=== PATIENT | male | born 1955 | race Hispanic/Latino ===

== ENCOUNTER 2022-08-07 06:47 | Observation (INO) | payer OTHER, MEDICARE ==
[2022-07-31 11:25] LABS: BASOPHILS % (AUTO) 0.6 % (0.0-5.0); EOSINOPHILS % (AUTO) 1.6 % (0.0-8.0); HEMATOCRIT 47.4 % (42-54); LYMPHOCYTES % (AUTO) 28.3 % (21.0-51.0); MEAN CORPUSCULAR HEMOGLOBIN 31.5 pg (27.0-33.0); MEAN CORPUSCULAR HGB CONC 34.2 g/dL (32.0-36.0); MEAN CORPUSCULAR VOLUME 92.2 fL (79-99); MONOCYTES % (AUTO) 7.7 % (3.0-13.0); NEUTROPHILS % (AUTO) 61.6 % (40.0-77.0); PLATELET COUNT (AUTO) 207 K/uL (130-400); RED BLOOD CELL COUNT(AUTO) 5.14 MIL/uL (4.50-6.20); RED CELL DISTRIBUTION WIDTH 14.2 % (11.0-15.5); WHITE BLOOD COUNT (AUTO) 5.1 K/uL (4.8-10.8)
[2022-07-31 11:35] LABS: CREATININE 1.9 mg/dL (0.5-1.5); POTASSIUM 4.5 mmol/L (3.5-5.1)
[2022-07-31 11:36] LABS: PROTHROMBIN TIME 10.9 SEC (9.6-11.6)
[2022-07-31 11:37] LABS: PARTIAL THROMBOPLASTIN TIME 29.1 SEC (26.3-35.5)
[2022-08-06 11:03] VITALS: BP 148/81
[~2022-08-07] VITALS: Ht 172.7 cm; Wt 81.3 kg
[2022-08-07] VITALS (30 sets, daily range): BP systolic 135–184; BP diastolic 75–96
[~2022-08-07 06:47] MED LIST: AEC81 PO; AMLO-257 PO; ATOR10 PO; CEFAZOLIN SODIUM 2 GM VIAL IVPB SCH; INSU100V12 SQ; LOSA100T58 PO
[2022-08-07] MEDS ORDERED: TRANEXAMIC ACID 1000MG/10ML ONE (07:24)
[2022-08-07] MEDS ORDERED: BUPIVACAINE/PF 0.5% 30ML VIAL ONE (07:28)
[2022-08-07] MEDS ORDERED: 0.9%NACL 1000ML 1,000 ML IV ONE (07:37)
[2022-08-07] MEDS ORDERED: CEFAZOLIN SODIUM 2 GM VIAL ONE (07:37)
[2022-08-07] MEDS ORDERED: ROPIVACAINE 0.5% 5MG/ML 30ML IJ ONE (08:40)
[2022-08-07] MEDS ORDERED: PROPOFOL 10 MG/ML 20ML VIAL IV ONE ×2 (08:41→09:38)
[2022-08-07] MEDS ORDERED: ROCURONIUM 10MG/1ML SYR 10 MG/ML ML ONE ×2 (08:41→10:24)
[2022-08-07] MEDS ORDERED: MIDAZOLAM HCL 1 MG/ML 2ML VIAL ONE (08:43)
[2022-08-07] MEDS ORDERED: FENTANYL CITRATE PF 50 MCG/1 ML 2ML VIAL ONE (08:44)
[2022-08-07] MEDS ORDERED: CEFAZOLIN SODIUM 2 GM VIAL IV ONE (09:22)
[2022-08-07] MEDS ORDERED: TRANEXAMIC ACID 1000MG/10ML IV ONE (10:20)
[2022-08-07] MEDS ORDERED: ONDANSETRON 4MG INJ ONE (11:19)
[2022-08-07] MEDS ORDERED: POTASSIUM CHLORIDE 20MEQ/100ML 100 ML IV PRN (12:00)
[2022-08-07] MEDS ORDERED: POTASSIUM CHLORIDE 10% ELIXIR 20 MEQ/15 ML UDCUP PO PRN (12:00)
[2022-08-07] MEDS ORDERED: LIDOCAINE HCL-MPF 1% 2ML VIAL IV PRN (12:00)
[2022-08-07] MEDS ORDERED: ONDANSETRON 4MG INJ IVP PRN (12:00)
[2022-08-07] MEDS ORDERED: HYDROCODONE/ACETAMINOPHEN 5/325 MG TAB PO PRN (12:00)
[2022-08-07] MEDS: 0.9%NACL 1000ML 1,000 ML IV SCH ×3 (12:00→22:26)
[2022-08-07] MEDS ORDERED: KCL 20 MEQ ERTAB PO PRN (12:00)
[2022-08-07] MEDS ORDERED: FERROUS FUMARATE 324 MG TABLET PO PRN (12:00)
[2022-08-07] MEDS ORDERED: HYDROMORPHONE 1 MG INJ ONE ×2 (12:35→12:54)
[2022-08-07] MEDS: ACETAMINOPHEN 1,000 MG/100 ML VIAL IV SCH ×2 (12:48→20:11)
[2022-08-07] MEDS ORDERED: LABETALOL 20MG SYG IV ONE (13:18)
[2022-08-07] MEDS: IBUPROFEN 800MG + NS 250ML IV SCH ×2 (14:55→20:12)
[2022-08-07] MEDS: FAMOTIDINE 20MG TAB PO SCH (15:00)
[2022-08-07] MEDS: HYDROCODONE/ACETAMINOPHEN 10/325 MG TAB PO PRN ×2 (16:02→20:12)
[2022-08-07] MEDS: CEFAZOLIN SODIUM 2 GM VIAL IVP SCH (16:46)
[2022-08-07] MEDS: INSULIN HUMULIN R 100 UNIT/ML 3ML SQ SCH ×2 (17:14→20:30)
[2022-08-07] MEDS: MORPHINE 4 MG SYG IVP PRN ×2 (17:41→22:13)
[2022-08-07] MEDS: ASPIRIN 81 MG EC TAB PO SCH (20:11)
[2022-08-08] VITALS (7 sets, daily range): BP systolic 134–178; BP diastolic 75–87
[2022-08-08] MEDS: ACETAMINOPHEN 1,000 MG/100 ML VIAL IV SCH
[2022-08-08] MEDS ORDERED: ACETAMINOPHEN 500 MG TABLET ONE (00:41)
[2022-08-08] MEDS: CEFAZOLIN SODIUM 2 GM VIAL IVP SCH (00:50)
[2022-08-08] MEDS: IBUPROFEN 800MG + NS 250ML IV SCH (00:52)
[2022-08-08] MEDS ORDERED: ACETAMINOPHEN 500 MG TABLET PO ONE (01:00)
[2022-08-08] MEDS: HYDROCODONE/ACETAMINOPHEN 10/325 MG TAB PO PRN ×5 (01:21→20:22)
[2022-08-08] MEDS ORDERED: TAMS-1 PO (03:22)
[2022-08-08 05:27] LABS: HEMATOCRIT 41.2 % (42-54); MEAN CORPUSCULAR HEMOGLOBIN 31.4 pg (27.0-33.0); MEAN CORPUSCULAR VOLUME 92.4 fL (79-99); RED BLOOD CELL COUNT(AUTO) 4.46 MIL/uL (4.50-6.20); RED CELL DISTRIBUTION WIDTH 14.5 % (11.0-15.5); WHITE BLOOD COUNT (AUTO) 9.3 K/uL (4.8-10.8)
[2022-08-08 05:39] LABS: CREATININE 1.3 mg/dL (0.5-1.5); POTASSIUM 3.8 mmol/L (3.5-5.1)
[2022-08-08] MEDS ORDERED: HYDROMORPHONE HCL 2 MG TAB PO PRN (06:00)
[2022-08-08] MEDS: INSULIN HUMULIN R 100 UNIT/ML 3ML SQ SCH ×4 (06:02→20:01)
[2022-08-08] MEDS: AMLODIPINE 5 MG TAB PO SCH (08:34)
[2022-08-08] MEDS: FAMOTIDINE 20MG TAB PO SCH (08:34)
[2022-08-08] MEDS: TAMSULOSIN HCL 0.4 MG CAP.ER.24H PO SCH (08:34)
[2022-08-08] MEDS: ASPIRIN 81 MG EC TAB PO SCH ×2 (08:34→19:59)
[2022-08-08] MEDS: ATORVASTATIN 10 MG TABLET PO SCH (08:34)
[2022-08-08] MEDS: LOSARTAN 100 MG TABLET PO SCH (08:34)
[2022-08-08] MEDS: POLYETHYLENE GLYCOL 3350 17 GM POWD.PACK PO SCH (08:34)
[2022-08-08] MEDS: INSULIN GLARGINE 100 UNITS/ML 10 ML VIAL SQ SCH (08:55)
[2022-08-09] MEDS: HYDROCODONE/ACETAMINOPHEN 10/325 MG TAB PO PRN ×4 (00:18→12:49)
[2022-08-09 04:07] VITALS: BP 140/83
[2022-08-09] MEDS: INSULIN HUMULIN R 100 UNIT/ML 3ML SQ SCH ×2 (06:23→12:07)
[2022-08-09 08:00] VITALS: BP 140/69
[2022-08-09] MEDS: INSULIN GLARGINE 100 UNITS/ML 10 ML VIAL SQ SCH (08:47)
[2022-08-09] MEDS: ATORVASTATIN 10 MG TABLET PO SCH (08:50)
[2022-08-09] MEDS: LOSARTAN 100 MG TABLET PO SCH (08:50)
[2022-08-09] MEDS: FAMOTIDINE 20MG TAB PO SCH (08:50)
[2022-08-09] MEDS: TAMSULOSIN HCL 0.4 MG CAP.ER.24H PO SCH (08:50)
[2022-08-09] MEDS: ASPIRIN 81 MG EC TAB PO SCH (08:51)
[2022-08-09] MEDS: AMLODIPINE 5 MG TAB PO SCH (08:51)
[2022-08-09] MEDS: POLYETHYLENE GLYCOL 3350 17 GM POWD.PACK PO SCH (08:53)
[2022-08-09 12:00] VITALS: BP 138/79
[2022-08-10] MEDS ORDERED: BISACODYL 10 MG SUPP.RECT RC PRN (12:00)
== END 2022-08-09 14:15 | disposition home or self-care (01) ==
LOC: DAH 06:47 → DAHIP 06:48 → 4AH 14:34
PROVIDERS: ADMIT Orthopaedic Surgery; ATTEND Orthopaedic Surgery
DX: M17.0 Bilateral primary osteoarthritis of knee (principal); Z20.822 Contact with and (suspected) exposure to COVID-19; E11.9 Type 2 diabetes mellitus without complications; R33.8 Other retention of urine; N40.1 Benign prostatic hyperplasia with lower urinary tract symptoms; M24.569 Contracture, unspecified knee; Z88.5 Allergy status to narcotic agent; Z96.652 Presence of left artificial knee joint; Z79.899 Other long term (current) drug therapy; Z79.4 Long term (current) use of insulin
CPT/HCPCS: 80048 ×2; 85025; 85610; 85730; 87426; 36415 ×2; 27447; 96376 ×2; 96372 ×3; 96365; 96375; 82948 ×11; 97161; 97039 ×4; 97530 ×4; 85027; 97116 ×3; S2900; A6260; G0378 ×46; A4663; J7030 ×3; A4649 ×3; J3010; J1170 ×2; J3490 ×3; J2250; J2704 ×2; J2405; J2270 ×2; J2795; J1815 ×5; J0690 ×4; G0168; C1776 ×4; A6255; A6254; A4215; A4223; A4222; A4221

== ENCOUNTER 2023-02-26 05:58 | Observation (INO) | payer OTHER, MEDICARE ==
[2023-02-21 12:51] VITALS: BP 139/79
[2023-02-21 13:06] LABS: BASOPHILS % (AUTO) 0.4 % (0.0-5.0); EOSINOPHILS % (AUTO) 1.7 % (0.0-8.0); HEMATOCRIT 54.6 % (42-54); LYMPHOCYTES % (AUTO) 28.5 % (21.0-51.0); MEAN CORPUSCULAR HEMOGLOBIN 32.1 pg (27.0-33.0); MEAN CORPUSCULAR VOLUME 97.5 fL (79-99); PLATELET COUNT (AUTO) 178 K/uL (130-400); RED CELL DISTRIBUTION WIDTH 15.4 % (11.0-15.5); WHITE BLOOD COUNT (AUTO) 4.7 K/uL (4.8-10.8)
[2023-02-21 13:16] LABS: CREATININE 1.7 mg/dL (0.5-1.5); INR 1.08 (0.85-1.15); POTASSIUM 4.4 mmol/L (3.5-5.1); PROTHROMBIN TIME 11.7 SEC (9.6-11.6)
[2023-02-21 13:17] LABS: PARTIAL THROMBOPLASTIN TIME 30.5 SEC (26.3-35.5)
[~2023-02-26] VITALS: Ht 172.7 cm; Wt 82.6 kg
[2023-02-26] VITALS (26 sets, daily range): BP systolic 106–164; BP diastolic 60–96
[~2023-02-26 05:58] MED LIST changes: -ATOR10 PO; -CEFAZOLIN SODIUM 2 GM VIAL IVPB SCH; +EMPA25TA PO; +FINA5TAB41 PO; +INSU200I SQ; -LOSA100T58 PO; +LOSA100T59 PO; +PIOG15TA66 PO; +ROSU5TAB12 PO; +TAMS-1 PO
[2023-02-26] MEDS ORDERED: CEFAZOLIN SODIUM 2 GM VIAL ONE (06:09)
[2023-02-26] MEDS ORDERED: 0.9%NACL 1000ML 1,000 ML IV ONE (06:09)
[2023-02-26] MEDS ORDERED: DEXAMETHASONE SOD PHOSPHATE 10MG/ML 1ML VIAL ONE (06:54)
[2023-02-26] MEDS ORDERED: ONDANSETRON 4MG INJ ONE (06:54)
[2023-02-26] MEDS ORDERED: GLYCOPYRROLATE 1 MG/5 ML SYRINGE ONE (06:54)
[2023-02-26] MEDS ORDERED: LIDOCAINE PF 100MG/5ML (2%) SYRINGE 5ML ONE ×2 (06:54→09:34)
[2023-02-26] MEDS ORDERED: SUCCINYLCHOLINE 200MG/10ML SYR ONE (06:54)
[2023-02-26] MEDS ORDERED: MIDAZOLAM HCL 1 MG/ML 2ML VIAL ONE (06:55)
[2023-02-26] MEDS ORDERED: ROCURONIUM 10MG/1ML SYR 10 MG/ML ML ONE ×2 (06:55→08:39)
[2023-02-26] MEDS ORDERED: NEOSTIGMINE 5MG/5ML SYR IV ONE (06:55)
[2023-02-26] MEDS ORDERED: PROPOFOL 10 MG/ML 20ML VIAL IV ONE (06:55)
[2023-02-26] MEDS ORDERED: FENTANYL CITRATE PF 50 MCG/1 ML 2ML VIAL ONE (06:55)
[2023-02-26] MEDS ORDERED: TRANEXAMIC ACID 1000MG/10ML ONE (07:03)
[2023-02-26] MEDS ORDERED: CEFAZOLIN SODIUM 2 GM VIAL IVPB ONE (07:50)
[2023-02-26] MEDS ORDERED: TRANEXAMIC ACID 1000MG/10ML IV ONE (07:55)
[2023-02-26] MEDS ORDERED: KETOROLAC 30MG VIAL (30MG/ML) ONE (09:21)
[2023-02-26] MEDS ORDERED: ROPIVACAINE 0.5% 5MG/ML 30ML IJ ONE (09:26)
[2023-02-26] MEDS ORDERED: MEPERIDINE-PF 25 MG/ML SYG ONE ×2 (09:29→10:33)
[2023-02-26] MEDS ORDERED: KCL 20 MEQ ERTAB PO PRN (10:00)
[2023-02-26] MEDS ORDERED: ONDANSETRON 4MG INJ IVP PRN (10:00)
[2023-02-26] MEDS ORDERED: POTASSIUM CHLORIDE 10% ELIXIR 20 MEQ/15 ML UDCUP PO PRN (10:00)
[2023-02-26] MEDS: 0.9%NACL 1000ML 1,000 ML IV SCH ×2 (10:00→20:00)
[2023-02-26] MEDS ORDERED: POTASSIUM CHLORIDE 20MEQ/100ML 100 ML IV PRN (10:00)
[2023-02-26] MEDS ORDERED: HYDROCODONE/ACETAMINOPHEN 5/325 MG TAB PO PRN (10:00)
[2023-02-26] MEDS: FAMOTIDINE 20MG TAB PO SCH (10:07)
[2023-02-26] MEDS ORDERED: CEFAZOLIN SODIUM 2 GM VIAL IVPB SCH (10:30)
[2023-02-26] MEDS: ACETAMINOPHEN 1,000 MG/100 ML VIAL IV SCH ×3 (10:49→23:54)
[2023-02-26] MEDS: INSULIN HUMULIN R 100 UNIT/ML 3ML SQ SCH ×3 (11:30→21:00)
[2023-02-26] MEDS: INSULIN LISPRO 5 UNIT SQ SCH ×2 (11:30→17:00)
[2023-02-26] MEDS: IBUPROFEN 800MG + NS 250ML IV SCH ×3 (14:01→22:35)
[2023-02-26] MEDS: TRAMADOL HCL 50 MG TABLET PO SCH ×3 (14:01→22:36)
[2023-02-26] MEDS: CEFAZOLIN SODIUM 2 GM VIAL IVPB SCH ×2 (17:19→23:54)
[2023-02-26] MEDS: ASPIRIN 81 MG EC TAB PO SCH (22:36)
[2023-02-27] VITALS (7 sets, daily range): BP systolic 140–178; BP diastolic 75–87
[2023-02-27] MEDS: MORPHINE 4 MG SYG IVP PRN ×2 (02:55→22:28)
[2023-02-27 04:46] LABS: HEMATOCRIT 45.3 % (42-54); MEAN CORPUSCULAR HEMOGLOBIN 32.9 pg (27.0-33.0); MEAN CORPUSCULAR VOLUME 96.8 fL (79-99); RED BLOOD CELL COUNT(AUTO) 4.68 MIL/uL (4.50-6.20); RED CELL DISTRIBUTION WIDTH 15.5 % (11.0-15.5); WHITE BLOOD COUNT (AUTO) 7.9 K/uL (4.8-10.8)
[2023-02-27 04:56] LABS: CREATININE 1.8 mg/dL (0.5-1.5)
[2023-02-27] MEDS: 0.9%NACL 1000ML 1,000 ML IV SCH (06:00)
[2023-02-27] MEDS: IBUPROFEN 800MG + NS 250ML IV SCH (06:21)
[2023-02-27] MEDS: TRAMADOL HCL 50 MG TABLET PO SCH ×4 (06:22→22:58)
[2023-02-27] MEDS: INSULIN HUMULIN R 100 UNIT/ML 3ML SQ SCH ×4 (06:22→20:36)
[2023-02-27] MEDS: INSULIN LISPRO 5 UNIT SQ SCH ×3 (07:30→17:00)
[2023-02-27] MEDS: HYDROCODONE/ACETAMINOPHEN 10/325 MG TAB PO PRN ×3 (08:31→17:38)
[2023-02-27] MEDS: FAMOTIDINE 20MG TAB PO SCH (08:39)
[2023-02-27] MEDS: ASPIRIN 81 MG EC TAB PO SCH ×2 (08:39→20:37)
[2023-02-27] MEDS ORDERED: EMPAGLIFLOZIN 25MG TABLET PO SCH (09:00)
[2023-02-27] MEDS ORDERED: LOSARTAN 100 MG TABLET PO SCH (09:00)
[2023-02-27] MEDS ORDERED: FINASTERIDE 5 MG TABLET PO SCH (09:00)
[2023-02-27] MEDS ORDERED: INSULIN DETEMIR 25 UNIT SQ SCH (09:00)
[2023-02-27] MEDS ORDERED: TAMSULOSIN HCL 0.4 MG CAP.ER.24H PO SCH (09:00)
[2023-02-27] MEDS ORDERED: POLYETHYLENE GLYCOL 3350 17 GM POWD.PACK PO SCH (09:00)
[2023-02-27] MEDS ORDERED: AMLODIPINE 5 MG TAB PO SCH (09:00)
[2023-02-27] MEDS ORDERED: PIOGLITAZONE 15MG TAB PO SCH (09:00)
[2023-02-28 04:00] VITALS: BP 165/84
[2023-02-28] MEDS: TRAMADOL HCL 50 MG TABLET PO SCH (05:45)
[2023-02-28] MEDS: INSULIN HUMULIN R 100 UNIT/ML 3ML SQ SCH (05:51)
[2023-02-28] MEDS: INSULIN LISPRO 5 UNIT SQ SCH (06:29)
[2023-02-28 07:54] VITALS: BP 169/97
[2023-03-01] MEDS ORDERED: BISACODYL 10 MG SUPP.RECT RC PRN (10:00)
== END 2023-02-28 08:25 | disposition home or self-care (01) ==
LOC: DAH 05:58 → DAHIP 05:59 → 4AH 11:30
PROVIDERS: ADMIT Orthopaedic Surgery; ATTEND Orthopaedic Surgery
DX: M17.11 Unilateral primary osteoarthritis, right knee (principal); Z20.822 Contact with and (suspected) exposure to COVID-19; N40.0 Benign prostatic hyperplasia without lower urinary tract symptoms; E11.9 Type 2 diabetes mellitus without complications; E78.00 Pure hypercholesterolemia, unspecified; Z79.82 Long term (current) use of aspirin; Z68.27 Body mass index [BMI] 27.0-27.9, adult; Z79.899 Other long term (current) drug therapy; Z98.890 Other specified postprocedural states
CPT/HCPCS: 80048 ×2; 85025; 85610; 85730; 87426; 36415 ×2; 93005; 87641; 27447; 96372 ×2; 96365; 96366 ×3; 96367; 96368; 64447; 82948 ×9; 97161; 97039 ×3; 97116 ×3; 96376; 96375; 85027; 97530; A6260; C1713; C1776 ×4; G0378 ×43; A4663; J7030 ×2; J3010; J3490 ×3; J0330; J1100; J2710; J2001 ×2; J2250; J2704; J2405 ×2; J1885; J2175 ×2; J2795; J1741 ×3; J1815 ×2; J0690 ×4; A6223; G0168; A4649 ×3; A6212; A5120 ×2; A4215; A4223; A4222; A4221; J2270 ×2